=== PATIENT | male | born 1965 | race Caucasian/White ===

== ENCOUNTER 2019-02-12 06:19 | Day surgery (SDC) | payer OTHER ==
[~2019-02-12] VITALS: Ht 167.6 cm; Wt 103.3 kg
[~2019-02-12 06:19] MED LIST: ACET500C5 PO; AZIT250T PO; GUAI5SYR2 PO; IBUP-1982 PO
[2019-02-12] MEDS ORDERED: PRAVASTATIN (07:52)
[2019-02-12] MEDS ORDERED: BENAZEPRIL (07:52)
[2019-02-12] MEDS ORDERED: METFORMIN (07:52)
[2019-02-12] MEDS ORDERED: LEVOTHYROXINE (07:52)
[2019-02-12] MEDS ORDERED: HTN MEDICATION (07:52)
[2019-02-12 07:56] VITALS: Ht 167.6 cm; Wt 103.3 kg
[2019-02-12 08:09] VITALS: BP 111/64; PULSE 53; RESP 15
[2019-02-12] MEDS ORDERED: LIDOCAINE 4% SOLUTION 50 ML BTL ONE (08:44)
[2019-02-12] MEDS ORDERED: MIDAZOLAM 1 MG/ML 2 ML INJ ONE ×2 (09:26)
[2019-02-12] MEDS ORDERED: FENTAnyl 50 MCG/ML VIAL ONE (09:26)
[2019-02-12 09:36] VITALS: BP 110/79; PULSE 59; RESP 16
== END 2019-02-12 11:45 | disposition home or self-care (01) ==
LOC: GIL 06:19
PROVIDERS: ATTEND Internal Medicine Gastroenterology
DX: Z12.11 Encounter for screening for malignant neoplasm of colon (principal); K29.50 Unspecified chronic gastritis without bleeding; K64.8 Other hemorrhoids; K57.30 Diverticulosis of large intestine without perforation or abscess without bleeding; E11.9 Type 2 diabetes mellitus without complications; I10 Essential (primary) hypertension
CPT/HCPCS: 43239; 45378; 82962; 88305; 88312; J2250; J3010; Z7610